=== PATIENT | male | born 1960 | race Caucasian/White ===

== ENCOUNTER 2017-10-22 13:03 | Emergency (ER) | payer OTHER ==
[~2017-10-22] VITALS: Ht 172.7 cm; Wt 79.4 kg
[2017-10-22] MEDS ORDERED: ROBAXIN 750 MG750 M1 PO (13:34)
[2017-10-22] MEDS ORDERED: TRAMADOL 50 MG50 MG PO (13:34)
[2017-10-22] MEDS ORDERED: NAPROSYN500 MG PO (13:34)
[2017-10-22 13:42] VITALS: BP 137/95
== END 2017-10-22 13:43 | disposition short-term general hospital (02) ==
LOC: M.ERS 13:03
DX: M54.6 Pain in thoracic spine (principal)